=== PATIENT | male | born 1975 | race Caucasian/White ===

== ENCOUNTER 2022-02-01 13:36 | Emergency (ER) | payer MEDICAID, OTHER ==
[~2022-02-01] VITALS: Ht 188 cm; Wt 99.8 kg
[2022-02-01 13:36] VITALS: BP 105/58
--- NOTE | 2022-02-01 13:36 | NUR ---
Note chavashanti in ED - 02/01/22 at 1401 by MARK BIBS ASKING FOR HIS URINARY CATHTER TO BE CHECKED, PT HAS RECENTLY HAS COLD SWEATS AND HAS CONCERNED HIS PAPPAS MAY BE CLOGGED. VITALS ARE WITHIN NORMAL LMI
--- NOTE | 2022-02-01 13:36 | NUR ---
BIBS ASKING FOR HIS URINARY CATHTER TO BE CHECKED, PT HAS RECENTLY HAS COLD SWEATS AND HAS CONCERNED HIS PPAPAS MAY BE CLOGGED. VITALS ARE WITHIN NORMAL LIMITS
--- NOTE | 2022-02-01 14:06 | NUR ---
PT CATHETER WAS CHECKED, DRAINING NORMALLY.
--- NOTE | 2022-02-01 14:15 | NUR ---
PT LEFT WITHOUT RECIEVING DISCHARGE PAPERS. PT LEFT IN STABLE CONDITION WITH HIS WHEELCHAIR.
== END 2022-02-01 14:21 | disposition home or self-care (01) ==
LOC: ER 13:38
DX: T83.018A Breakdown (mechanical) of other urinary catheter, initial encounter (principal); Y82.8 Other medical devices associated with adverse incidents